=== PATIENT | female | born 1950 | race American Indian/Alaskan Native ===

== ENCOUNTER 2017-10-09 10:58 | Outpatient (CLI) | payer MEDICARE, OTHER ==
--- NOTE | 2017-10-09 11:23 | XRay Report ---
LEFT KNEE RADIOGRAPHS INDICATION: Left knee pain. COMPARISON: None similar at this institution. FINDINGS: Standing AP, oblique and lateral left knee radiographs as also a tunnel view demonstrate severe medial compartment narrowing. Multiple degenerative spurring. Small suprapatellar effusion not excluded. Osteopenia/osteoporosis. CONCLUSION: Left knee osteoarthrosis with severe medial compartment involvement, as described. Thank you for the opportunity to participate in this patient's care.
== END 2017-10-09 10:59 | disposition home or self-care (01) ==
LOC: SPVIMAG 10:58
PROVIDERS: ATTEND Orthopaedic Surgery
DX: M17.12 Unilateral primary osteoarthritis, left knee (principal)